=== PATIENT | female | born 1990 | race Two or more races ===

== ENCOUNTER 2025-01-24 16:40 | Emergency (ER) | payer MEDICAID, SELFPAY ==
[2025-01-24 17:59] VITALS: BP 142/83; PULSE 118; RESP 18; TEMP 37.3; O2SAT 99; BMI 25.7
[2025-01-24 18:13] VITALS: PULSE 100
--- NOTE | 2025-01-24 18:19 | PD.EDADULT ---
ED General RME/HPI General Chief complaint: General Adult/Misc Complain Stated complaint: NEEDS ABX SHOT PER DENTIST Arrival date/time: 01/24/25 16:40 RME / HPI RME / HPI narrative: 34-year-old female patient with no significant past medical history was sent to us by the dentist for antibiotic shot. Patient was seen today by the dentist for possible dental abscess. Patient was prescribed antibiotic which the patient's need to diamond picker today. Patient denies any shortness of breath denies any fever denies any difficulty swallowing. Patient's been having swelling to the left side of the face for several days now. Related Data Home Medications ?Medication ?Instructions ?Recorded ?Confirmed vit no.95-ferrous 1 tab PO QDAY 05/23/19 05/23/19 fumarate 28 mg-folic acid 800 mcg tablet () Previous Rx's ?Medication ?Instructions ?Recorded hydrocodone 5 mg-acetaminophen 325 1 tab PO QID PRN pain #30 tabs 05/29/19 mg tablet ([place]) Allergies Allergy/AdvReac Type Severity Reaction Status Date / Time No Known Allergies Allergy Verified 01/24/25 16:43 Review of Systems Review of Systems Narrative Review of Systems: Review of system reviewed and within normal limits except mentioned in HPI ED Exam Narrative Physical exam: VITAL SIGNS: Reviewed. GENERAL APPEARANCE: Alert and interactive, follows commands, no acute distress, HEAD AND FACE: Non-traumatic. Swelling to the left side of the face, with multiple dental cavity noted, nonfluctuant left upper premolar. ENT: PERRL, pink conjunctivitis, eyelid no trauma, Mucous membrane moist. NECK: Supple, nontender, no nuchal rigidity. CHEST: No tenderness, no crepitus, no paradoxical movement, no retractions. LUNGS: Clear, well ventilated, symmetric, no rales, no wheezing, no ronchi, no stridor, good breath sounds bilaterally. HEART: Regular rate, regular rhythm, no murmur, no gallops. ABDOMEN: Soft, positive bowel sounds, nondistended, no guarding, nontender, no rebound, no masses, RECTAL: Deferred. GENITAL: Deferred. NEUROLOGICAL: Gross motor function intact sensory function intact, Appropriate for age. MUSCULOSKELETAL: low back nontender, full range of motion. EXTREMITIES: Nontender, full range of motion. SKIN: Color pink, dry, no rash, no lacerations, no abrasions, no contusions. LYMPHATICS: Deferred. Course Quality Measures none Orders Category Date Time Status 1,000 mg IM w/Lido* 1% Med 01/24/25 18:19 Ordered cefTRIAXone [Rocephin] 1,000 mg Lidocaine 1% 20 ml [Xylocaine 1% 20 ML] 2.1 ml IM X1 Vital Signs Vital signs: Vital Signs Temperature 99.2 F 01/24/25 17:59 Pulse Rate 118 H 01/24/25 17:59 Respiratory Rate 18 01/24/25 17:59 Blood Pressure 142/83 H 01/24/25 17:59 Pulse Oximetry (%) 99 01/24/25 17:59 Oxygen Delivery Method Room Air 01/24/25 17:59 MDM Patient data External records reviewed:: None Clinical information provided by:: patient Social determinants that could affect healthcare access:: none Patient has the following chronic illnesses:: None How is presenting disease/condition affected by chronic disease/condition?: no chronic disease Evaluation data The following diagnostics were reviewed and interpreted by me:: other (specify) (None) Lab and/or radiology exams considered but not ordered:: None Interpretation Summary: None Medications Medications considered but not ordered:: None Medication administrations:: Medication Administration History Ceftriaxone Sodium 1,000 mg/ (Lidocaine HCl 2.1 ml) 0 mg IM X1 ONE Stop: 01/24/25 18:20 None Consultations Consultation(s) initiated? (list below): No Diagnosis Differential Diagnosis ED Complaint MDM: Dental infection infected dental caries dental abscess Most likely diagnosis given after review of the tests above:: Dental infection Admission Indicated Admission indicated?: not indicated Explain why admission is indicated or not indicated:: None Admission Request Was there a request for admission?: No Disposition Plan Disposition Plan: Discharge Discharge Attestation Discharge Attestation: The patient and all family members were given an opportunity to ask questions and understood the discharge instructions. Discharge instructions specifically effects, indications for sooner follow up or return to the emergency department, and the expected course of current diagnosis. Patient condition: Stable Medical Decision Making MDM Narrative MDM Narrative: 34-year-old female patient with no significant past medical history was sent to us by the dentist for antibiotic shot. Patient was seen today by the dentist for possible dental abscess. Patient was prescribed antibiotic which the patient's need to diamond picker today. Patient denies any shortness of breath denies any fever denies any difficulty swallowing. Patient's been having swelling to the left side of the face for several days now. Patient received ceftriaxone IM. Patient was sent home with new prescription of antibiotics since he was already given prescription of antibiotic by her dentist. Differential Diagnosis Differential Diagnosis: Dental infection infected dental caries dental abscess Discharge Plan Plan Patient Disposition: HOME (Self Care) Disposition Comment: Stable Prescriptions/Referrals Prescriptions/Med Rec: No Action PNV cmb#95-ferrous fumarate-FA [] 28 mg iron- 800 mcg Tablet 1 tab PO QDAY hydrocodone-acetaminophen [[place]] 5-325 mg tablet 1 tab PO QID MDD 6 PRN (Reason: pain) Qty: 30 0RF Referrals: No Primary/Family,Physician [Primary Care Provider] - In 1 week Problem List Clinical Impression: Dental infection Patient/Caregiver Discharge Instructions Discharge Activity: activity as tolerated Education Materials: ED Abscess Antibiotic ... Additional Instructions: Thank you for the opportunity for serving you today. You are stable for discharged . You are advised to: Follow-up with your dentist in 1 to 2 days Return to ED for worsening of symptoms Increase oral fluids Take medication as prescribed by your dentist Print Language: Portuguese Stand Alone Forms: Jerrica Award Info., Patient Portal Info Letter SYDNIE/MARTÍNEZ Supervising Physician SYDNIE/MARTÍNEZ Supervising Physician: MD Clare
[2025-01-24] MEDS: cefTRIAXone 1,000 MG, LIDOCAINE 1% 20 ML 2.1 ML IM (18:37)
== END 2025-01-24 18:43 | disposition home or self-care (01) ==
PROVIDERS: Emergency Provider Emergency Medicine
DX: K04.7 Periapical abscess without sinus (principal)
CPT/HCPCS: 96372; 99283; J0696; J3490